=== PATIENT | female | born 1965 | race Caucasian/White ===

== ENCOUNTER 2017-07-16 21:35 | Emergency (ER) | payer MEDICAID ==
[2013-05-03 06:42] VITALS: BMI 37.0
[~2017-07-16 21:35] MED LIST: DILAUDID2 MG PO; EZFE 200200 MG PO; KEFLEX500 MG PO; NORCO 10/325 TA1 TA1 PO; ZOFRAN4 MG PO
== END 2017-07-16 22:22 | disposition home or self-care (01) ==
LOC: D.ER 21:35
DX: M54.5 Low back pain (principal); S39.012A Strain of muscle, fascia and tendon of lower back, initial encounter; X58.XXXA Exposure to other specified factors, initial encounter; Y93.89 Activity, other specified; Y92.89 Other specified places as the place of occurrence of the external cause; Z85.3 Personal history of malignant neoplasm of breast; Z90.13 Acquired absence of bilateral breasts and nipples; F17.200 Nicotine dependence, unspecified, uncomplicated

== ENCOUNTER 2019-05-04 11:36 | Emergency (ER) | payer SELFPAY ==
[~2019-05-04] VITALS: Ht 175.3 cm; Wt 113.6 kg
[2019-05-04 11:40] VITALS: Ht 175.3 cm; Wt 113.6 kg
[2019-05-04 12:26] LABS: APPEARANCE CLEAR (CLEAR); BILIRUBIN NEGATIVE (NEGATIVE); COLOR YELLOW (YELLOW); GLUCOSE NEGATIVE (NEGATIVE); KETONE NEGATIVE (NEGATIVE); NITRITE NEGATIVE (NEGATIVE); PROTEIN NEGATIVE (NEGATIVE); UROBILINOGEN NORMAL (NORMAL)
[2019-05-04] MEDS ORDERED: IBUPROFEN800 MG PO (12:35)
[2019-05-04] MEDS ORDERED: ACETAMINOPHEN500 M1 PO (12:35)
[2019-05-04] MEDS ORDERED: CYCLOBENZAPRINE10 MG PO (12:35)
[2019-05-04 13:09] VITALS: BP 131/88
== END 2019-05-04 13:09 | disposition home or self-care (01) ==
LOC: D.ER 11:36
PROVIDERS: Family Medicine
DX: M54.5 Low back pain (principal)

== ENCOUNTER 2020-03-28 09:43 | Emergency (ER) | payer SELFPAY ==
[~2020-03-28] VITALS: Ht 175.3 cm; Wt 118.2 kg
[~2020-03-28 09:43] MED LIST changes: +ACETAMINOPHEN500 M1 PO; +CYCLOBENZAPRINE10 MG PO; +IBUPROFEN800 MG PO
[2020-03-28 09:58] VITALS: Ht 175.3 cm; Wt 118.2 kg
[2020-03-28] MEDS ORDERED: VOLTAREN75 MG PO (12:46)
[2020-03-28 12:57] VITALS: BP 128/82
== END 2020-03-28 12:58 | disposition home or self-care (01) ==
LOC: D.ER 09:43
DX: S99.921A Unspecified injury of right foot, initial encounter (principal); X58.XXXA Exposure to other specified factors, initial encounter; M79.674 Pain in right toe(s)

== ENCOUNTER 2020-10-08 13:22 | Emergency (ER) | payer SELFPAY ==
[~2020-10-08] VITALS: Ht 175.3 cm; Wt 113.6 kg
[~2020-10-08 13:22] MED LIST changes: +MUPIROCIN22 GM TOPICAL; +VOLTAREN75 MG PO
[2020-10-08 13:27] VITALS: BP 126/76; Ht 175.3 cm; Wt 113.6 kg
[2020-10-08] MEDS ORDERED: HYDROCODON-ACE1 EAC7 PO (15:18)
== END 2020-10-08 15:57 | disposition home or self-care (01) ==
LOC: D.ER 13:22
DX: M54.9 Dorsalgia, unspecified (principal); R07.81 Pleurodynia; M25.512 Pain in left shoulder; V89.2XXA Person injured in unspecified motor-vehicle accident, traffic, initial encounter; Y93.9 Activity, unspecified; Y92.9 Unspecified place or not applicable